=== PATIENT | female | born 1960 | race Caucasian/White ===

== ENCOUNTER → 2020-08-07 | Outpatient (CLI) | payer OTHER ==
[~2020-08-07] MED LIST: DOC250 PO; IBUP200 PO; MULVITA PO; Milk Thistle175 M1 PO; Norco 10-325 T1 EACH PO; SULTRIDS PO; TRAM50 PO
[2020-08-11 07:09] LABS: HPV 16 Negative (Negative); HPV 18 Negative (Negative); HPV OTHER HR TYPES Positive (Negative)
== END | disposition home or self-care (01) ==
LOC: LAB SHORT 16:48 → LAB 16:48
PROVIDERS: Family Medicine
DX: Z01.419 Encounter for gynecological examination (general) (routine) without abnormal findings (principal)
CPT/HCPCS: 87624; G0123

== ENCOUNTER 2020-10-03 07:40 | Day surgery (SDC) | payer OTHER ==
[~2020-10-03] VITALS: Ht 167.6 cm; Wt 55.0 kg
--- NOTE | 2020-10-03 08:29 | NUR ---
PT AMBULATES TO [facility] c STEADY GAIT. REPORTS NPO SINCE MIDNIGHT. History, Chart, Medications and Allergies reviewed before start of procedure. Lungs clear T/O to Auscultation. + VOID. IV PLACEMENT X 2 s DIFFICULTY.
--- NOTE | 2020-10-03 13:15 | NUR ---
Patient up to Ambulate independently. Gait steady. Discharge instructions reviewed with patient. Patient verbalizes understanding. Copy given to patient to take home. Discharged via wheelchair to private car for ride home WITH MOTHER. PRESCRIPTION FOR PAIN MEDICATION IN DISCHARGE FOLDER.
== END 2020-10-03 13:17 | disposition home or self-care (01) ==
LOC: ORSCMMR 07:40 → ORD 09:30 → ORSCMMR 13:17
PROVIDERS: Surgery
PROC: 0YU64JZ Supplement Left Inguinal Region with Synthetic Substitute, Percutaneous Endoscopic Approach (ICD-10-PCS; principal; 2020-10-03 09:30)
PROC: 8E0W4CZ Robotic Assisted Procedure of Trunk Region, Percutaneous Endoscopic Approach (ICD-10-PCS; principal; 2020-10-03 09:30)
DX: K40.90 Unilateral inguinal hernia, without obstruction or gangrene, not specified as recurrent (principal); F17.210 Nicotine dependence, cigarettes, uncomplicated
CPT/HCPCS: 49650; S2900; A9270; C1781; J0690; J1100; J2250; J2405; J2704; J3010; J7120

== ENCOUNTER 2024-06-08 14:51 | Inpatient (IN) | payer OTHER ==
[~2024-06-08] VITALS: Ht 167.6 cm; Wt 47.1 kg
[2024-06-08] MEDS ORDERED: HYDROmorphone HCl/Pf 1MG SYR IV ONE ×3 (18:45→22:45)
[2024-06-08] MEDS ORDERED: FentaNYL Citrate 50 MCG/ML 2 ML Injection IV ONE (20:10)
[2024-06-08] MEDS ORDERED: Propofol 10mg/ml 20 ml Vial (Procedural) IV ONE (20:10)
[2024-06-08] MEDS ORDERED: NS 1,000 ML IV ONE (20:36)
[2024-06-08] MEDS ORDERED: NS 1,000 ML IV SCH (20:50)
[2024-06-08] MEDS ORDERED: Morphine Sulfate 4 MG/1 ML Injection IV ONE (22:15)
[2024-06-08 22:43] LABS: BASOPHILS ABSOLUTE AUTO 0.01 K/mm3 (0.00-0.23); BASOPHILS PERCENT AUTO 0 % (0-2); EOSINOPHILS PERCENT AUTO 0 % (0-6); Hematocrit 31.4 % (33.0-51.0); IMMATURE GRAN ABSOLUTE AUTO 0.04 K/mm3 (0.00-0.10); IMMATURE GRAN PERCENT AUTO 1 % (0-1); LYMPHOCYTES ABSOLUTE AUTO 0.73 K/mm3 (0.84-5.20); LYMPHOCYTES PERCENT AUTO 14 % (21-46); MONOCYTES ABSOLUTE AUTO 0.22 K/mm3 (0.16-1.47); MONOCYTES PERCENT AUTO 4 % (4-13); Mean Corpuscular HGB 36.4 pg (26.0-34.0); Mean Corpuscular Volume 104 fL (80-100); Mean Platelet Volume 9.5 fL (9.1-12.4); NEUTROPHILS ABSOLUTE AUTO 4.17 K/mm3 (1.96-9.15); NEUTROPHILS PERCENT AUTO 81 % (41-73); Platelet Count 111 K/mm3 (150-400); RDW Standard Deviation 49.7 fL (35.1-46.3); Red Blood Cell Count 3.02 M/mm3 (3.80-5.20); White Blood Cell Count 5.17 K/mm3 (4.00-11.30)
[2024-06-08 22:58] LABS: International Normalized Ratio 1.08; Prothrombin Time Results 11.5 Sec (9.7-11.5)
[2024-06-08 23:02] LABS: Albumin, Blood 2.6 g/dL (3.4-5.0); Albumin/Globulin Ratio 0.7 (0.8-1.8); Bilirubin, Total 0.6 mg/dL (0.1-1.0); Bun/Creatinine Ratio 5.2 (12.0-20.0); Calcium, Blood 7.4 mg/dL (8.5-10.1); Creatinine, Blood 0.39 mg/dL (0.40-1.00); Globulin, Blood 3.5 g/dL (2.2-4.0); Potassium, Blood 3.6 mmol/L (3.5-5.5); Total Protein, Blood 6.1 g/dL (6.4-8.2)
[2024-06-08] MEDS ORDERED: propofoL 20 ML IV SCH (23:30)
[2024-06-08] MEDS ORDERED: propofoL 20 ML IV ONE (23:32)
[2024-06-09] MEDS ORDERED: HYDROmorphone HCl/Pf 1MG SYR IV PRN (01:25)
[2024-06-09] MEDS ORDERED: FLU VACC TS2024-25(6MOS UP)/PF 45 MCG/0.5 ML SYRINGE IM ONE (01:25)
[2024-06-09 01:29] VITALS: BP 116/79
[2024-06-09] MEDS ORDERED: Ondansetron HCl 2 MG / ML 2ML Vial IV PRN (01:30)
[2024-06-09] MEDS ORDERED: NS 1,000 ML IV SCH (01:30)
[2024-06-09] MEDS ORDERED: FentaNYL Citrate 50 MCG/ML 2 ML Injection IV PRN (01:30)
[2024-06-09 04:34] VITALS: BP 131/75
[2024-06-09 05:38] LABS: BASOPHILS ABSOLUTE AUTO 0.01 K/mm3 (0.00-0.23); BASOPHILS PERCENT AUTO 0 % (0-2); EOSINOPHILS ABSOLUTE AUTO 0.02 K/mm3 (0.00-0.68); EOSINOPHILS PERCENT AUTO 0 % (0-6); Hemoglobin 10.8 g/dL (11.5-16.0); IMMATURE GRAN ABSOLUTE AUTO 0.02 K/mm3 (0.00-0.10); IMMATURE GRAN PERCENT AUTO 0 % (0-1); LYMPHOCYTES ABSOLUTE AUTO 1.96 K/mm3 (0.84-5.20); LYMPHOCYTES PERCENT AUTO 27 % (21-46); MONOCYTES ABSOLUTE AUTO 0.53 K/mm3 (0.16-1.47); MONOCYTES PERCENT AUTO 7 % (4-13); Mean Corpuscular HGB 35.6 pg (26.0-34.0); Mean Corpuscular HGB Conc 33.8 g/dL (31.5-36.5); Mean Corpuscular Volume 106 fL (80-100); Mean Platelet Volume 9.7 fL (9.1-12.4); NEUTROPHILS ABSOLUTE AUTO 4.85 K/mm3 (1.96-9.15); NEUTROPHILS PERCENT AUTO 66 % (41-73); Platelet Count 118 K/mm3 (150-400); RDW Coefficient Variation 13.2 % (11.7-14.2); RDW Standard Deviation 50.5 fL (35.1-46.3); Red Blood Cell Count 3.03 M/mm3 (3.80-5.20); White Blood Cell Count 7.39 K/mm3 (4.00-11.30)
[2024-06-09 06:00] LABS: Albumin, Blood 2.6 g/dL (3.4-5.0); Albumin/Globulin Ratio 0.8 (0.8-1.8); Bilirubin, Total 0.8 mg/dL (0.1-1.0); Bun/Creatinine Ratio 4.7 (12.0-20.0); Calcium, Blood 7.9 mg/dL (8.5-10.1); Creatinine, Blood 0.42 mg/dL (0.40-1.00); Globulin, Blood 3.3 g/dL (2.2-4.0); Potassium, Blood 3.4 mmol/L (3.5-5.5); Total Protein, Blood 5.9 g/dL (6.4-8.2)
[2024-06-09] MEDS ORDERED: Potassium Chloride 40 MEQ in NS 250 ML IV ONE (06:40)
[2024-06-09 07:16] VITALS: BP 118/72
[2024-06-09] MEDS ORDERED: Polyethylene Glycol 3350 17 gm PO PRN (08:35)
[2024-06-09] MEDS ORDERED: OxyCODONE 5 mg/Acetamin 325 mg TABLET PO PRN (08:35)
[2024-06-09] MEDS ORDERED: Nicotine 7 MG PATCH TOP SCH (09:00)
[2024-06-09 14:43] VITALS: BP 126/70
--- NOTE | 2024-06-09 16:47 | NUR ---
UPDATE DR. CHERRY TO SEE PATIENT WITH THE FOLLOWING INSTRUCTIONS 1.NWB TO L ARM 2.NO DRIVING 3.NO SMOKING 4.FOLLOW UP WITH [facility]THO NEXT WEEK 5.WEAR SLING WITH LUCRECIA WRAP 07/10 UNTIL FOLLOW UP.
[2024-06-09] MEDS ORDERED: BANATROL PLUS1 EAC1 PO (18:27)
[2024-06-09] MEDS ORDERED: Nicoderm Cq1 EACH TOP (18:28)
[2024-06-09] MEDS ORDERED: OXYC5 PO (18:29)
[2024-06-09] MEDS ORDERED: Banana Flakes/Tos 1 EA Powder Pack PO SCH (21:00)
[2024-06-09] MEDS ORDERED: Sennosides 8.6 MG Tab PO SCH (21:00)
== END 2024-06-09 18:43 | disposition home or self-care (01) | DRG 563 ==
LOC: ER 14:51 → SURS 14:52
PROVIDERS: Student in an Organized Health Care Education/Training Program; ADMIT Internal Medicine
PROC: 0PSDXZZ Reposition Left Humeral Head, External Approach (ICD-10-PCS; principal; 2024-06-08)
DX: S42.252A Displaced fracture of greater tuberosity of left humerus, initial encounter for closed fracture (principal); M25.012 Hemarthrosis, left shoulder; S43.015A Anterior dislocation of left humerus, initial encounter; F17.210 Nicotine dependence, cigarettes, uncomplicated; G57.93 Unspecified mononeuropathy of bilateral lower limbs; E87.6 Hypokalemia; Z79.1 Long term (current) use of non-steroidal anti-inflammatories (NSAID); Z79.899 Other long term (current) drug therapy; Z79.891 Long term (current) use of opiate analgesic; W01.198A Fall on same level from slipping, tripping and stumbling with subsequent striking against other object, initial encounter
CPT/HCPCS: 23665; 36415; 73030; 73200; 76000; 76377; 80053; 83880; 85025; 85610; 93005; 93010; 96374-59; 96375-59; 96376-59; 97110; 97161; 97530; 99152; 99153; 99285-25; A9270; G0378; J1171; J2270; J2405; J2704; J3010; J3480; J7030; J7050